=== PATIENT | male | born 1985 | race Two or more races ===

== ENCOUNTER 2017-07-27 00:48 | Emergency (ER) | payer SELFPAY ==
[~2017-07-27] VITALS: Ht 172.7 cm; Wt 75.7 kg
[2017-07-27 00:55] VITALS: BP 121/80
[2017-07-27 02:00] VITALS: BP 126/80
[2017-07-27] MEDS ORDERED: Tetanus/Diptheria/Pertussis Vaccine 0.5ml Syr IM ONE (02:15)
[2017-07-27 03:15] VITALS: BP 126/80
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
--- NOTE | 2017-07-30 13:38 | Diagnostic Imaging Report ---
Indication: Headache Technique: Continuous helical CT scanning of the head was performed utilizing automated exposure control without intravenous contrast material. Axial and coronal reconstructions were obtained. Comparison: None CT dose: Total DLP 1376 mGycm; CTDI vol 70.4 mGy Findings: There is no acute intracranial hemorrhage, mass effect or cortical edema. The ventricles, cisterns and sulci are within normal limits. Sellar and suprasellar regions are grossly unremarkable. Visualized mastoid air cells and paranasal sinuses are unremarkable. There is a left posterior scalp laceration. No skull fracture is seen. Impression: No evidence of acute intracranial hemorrhage, mass effect or cortical edema. Left posterior scalp laceration without skull fracture. The CT scanner at [facility] is accredited by the [employer] and the scans are performed using protocols designed to limit radiation exposure to as low as reasonably achievable to attain images of sufficient resolution adequate for diagnostic evaluation.
== END 2017-07-27 03:15 | disposition home or self-care (01) ==
LOC: EDBD 00:48 → EMR 02:00
DX: S01.01XA Laceration without foreign body of scalp, initial encounter (principal); S09.8XXA Other specified injuries of head, initial encounter; Y04.0XXA Assault by unarmed brawl or fight, initial encounter; Y92.89 Other specified places as the place of occurrence of the external cause; Y99.0 Civilian activity done for income or pay; Z23 Encounter for immunization
CPT/HCPCS: 70450; 90471; 90715; 99284

== ENCOUNTER 2017-08-01 23:01 | Emergency (ER) | payer OTHER ==
[~2017-08-01] VITALS: Ht 167.6 cm; Wt 76.2 kg
[2017-08-01 23:35] VITALS: BP 113/69
[2017-08-01 23:54] VITALS: BP 113/69
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
== END 2017-08-01 23:54 | disposition home or self-care (01) ==
LOC: EMR 23:48
DX: S01.01XD Laceration without foreign body of scalp, subsequent encounter (principal); X58.XXXD Exposure to other specified factors, subsequent encounter; Z48.02 Encounter for removal of sutures
CPT/HCPCS: 99282

== ENCOUNTER 2017-08-05 18:14 | Emergency (ER) | payer SELFPAY ==
[~2017-08-05] VITALS: Ht 170.2 cm; Wt 54.4 kg
[2017-08-05 18:37] VITALS: BP 117/63
--- NOTE | 2017-08-05 19:36 | Emergency Room Report ---
History of Present Illness General Chief Complaint: Wound Recheck/Suture Removal Source: Patient Present Illness HPI 32-year-old male presents ED for staple removal. Status post laceration scalp. Repaired with cristopher 2 weeks ago. Patient denies any pain. Denies any bleeding. No other aggravating relieving factors. Denies any other associated symptoms Allergies: Coded Allergies: No Known Allergies (Unverified , 07/27/17) Patient History Past Medical History: none Past Surgical History: none Pertinent Family History: none Social History: Denies: smoking, alcohol use, drug use Immunizations: UTD Reviewed Nursing Documentation: PMH: Agreed, PSxH: Agreed Nursing Documentation-PMH Past Medical History: No Stated History Review of Systems All Other Systems: negative except mentioned in HPI Physical Exam Vital Signs Date Time Temp Pulse Resp B/P (MAP) Pulse Ox O2 Delivery O2 Flow Rate FiO2 08/05/17 18:20 97.5 75 20 117/63 99 Room Air Sp02 EP Interpretation: reviewed, normal General Appearance: no apparent distress, alert, GCS 15, non-toxic Head: normocephalic Eyes: bilateral eye normal inspection, bilateral eye PERRL ENT: normal ENT inspection Neck: normal inspection Respiratory: normal inspection Cardiovascular #1: normal inspection Gastrointestinal: normal inspection Rectal: deferred Genitourinary: no CVA tenderness Musculoskeletal: normal inspection Neurologic: alert, oriented x3, responsive, motor strength/tone normal, sensory intact, speech normal Psychiatric: normal inspection Skin: other - wound well approximated. cristopher in place Lymphatic: normal inspection Medical Decision Making Diagnostic Impression: Primary Impression: Removal of cristopher ER Course Patient presents to the emergency department today for staple removal. patient' s wound appears well-healed, and cristopher are ready to be removed today. Using sterile technique the cristopher were removed patient tolerated procedure well without any difficulty. Patient was given advice in how to care for the wound patient is advised followup with his private care doctor in 2-3 days and return to emergency room for any worsening conditions as needed Last Vital Signs Date Time Temp Pulse Resp B/P (MAP) Pulse Ox O2 Delivery O2 Flow Rate FiO2 08/05/17 18:37 97.5 75 20 117/63 99 Room Air Status: improved Disposition: HOME, SELF-CARE Condition: Stable Referrals: NOT CHOSEN IPA/,REFERRING (PCP) Patient Instructions: Wound Check DUNIA MARTÍNEZ M.D. Aug 05, 2017 19:36
== END 2017-08-05 18:37 | disposition home or self-care (01) ==
LOC: EMR 18:30
DX: S01.01XD Laceration without foreign body of scalp, subsequent encounter (principal); Z48.02 Encounter for removal of sutures
CPT/HCPCS: 99282